=== PATIENT | female | born 1950 | race Caucasian/White ===

== ENCOUNTER → 2016-08-31 | Outpatient (CLI) | payer OTHER | END | disposition home or self-care (01) | LOC: RAD.S 15:39 | DX: R06.02 Shortness of breath (principal); J43.9 Emphysema, unspecified; R05 Cough; R91.8 Other nonspecific abnormal finding of lung field ==

== ENCOUNTER → 2016-09-07 | Outpatient (CLI) | payer OTHER | END | disposition home or self-care (01) | LOC: RESC 08-31 15:10 | DX: R06.02 Shortness of breath (principal) ==